=== PATIENT | female | born 2000 | race American Indian/Alaskan Native ===

== ENCOUNTER 2020-08-12 13:10 | Emergency (ER) | payer SELFPAY ==
--- NOTE | 2020-08-12 13:19 | Event Note ---
ED Screening Note ED Screening Note: suprapubic pain and malodorous dc lmp- "late 7 days" nausea g0 home preg pos This initial assessment/diagnostic orders/clinical plan/treatment(s) is/are subject to change based on patients health status, clinical progression and re- assessment by fellow clinical providers in the ED. Further treatment and workup at subsequent clinical providers discretion. Patient/guardian urged not to elope from the ED as their condition may be serious if not clinically assessed and managed. Initial orders include: uti/sti/preg
[2020-08-12 14:15] LABS: Basophils % (Auto) 0.6 % (0.0-1.8); Eosinophils # (Auto) 0.2 K/mm3 (0.0-0.4); Eosinophils % (Auto) 2.7 % (0.0-4.3); Hematocrit 36.7 % (30.3-42.9); Hemoglobin 12.2 gm/dl (10.1-14.3); Lymphocytes # (Auto) 2.1 K/mm3 (1.2-5.4); Lymphocytes % (Auto) 29.9 % (13.4-35.0); Mean Corpuscular HGB Conc 33 % (30-34); Mean Corpuscular Volume 92 fl (79-97); Monocytes # (Auto) 0.5 K/mm3 (0.0-0.8); Monocytes % (Auto) 6.7 % (0.0-7.3); Platelet Count 296 K/mm3 (140-440); Red Blood Count 4.01 M/mm3 (3.65-5.03); Red Cell Distribution Width 13.2 % (13.2-15.2)
[2020-08-12 14:33] LABS: Blood Urea Nitrogen 10 mg/dL (7-17); Hemolysis Index 8
[2020-08-12 14:36] LABS: BUN/Creatinine Ratio 14
[2020-08-12] MEDS ORDERED: ACETAMINOPHEN 325 MG TAB PO ONE (14:57)
--- NOTE | 2020-08-12 14:58 | Emergency Department Report ---
<ROBERT RAY - Last Filed: 08/12/20 16:38> ED Abdominal Pain HPI - General Chief Complaint: Abdominal Pain Stated Complaint: STOMACH CRAMPS/NAUSEA Time Seen by Provider: 08/12/20 13:18 Source: patient Mode of arrival: Ambulatory Limitations: No Limitations - History of Present Illness Initial Comments: 20-year-old female with no significant past medical history presents to the ER today with complaints of lower abdominal cramping. Patient states that she has been having intermittent lower abdominal cramping for the past week. She reports associated nausea and she states that she vomited all day yesterday. She states that her last menstrual cycle was July 03 through July 07. She is currently 7 days late for her menstrual cycle this time around. She states that she did take a home test yesterday and was positive. She also admits to brownish vaginal discharge which she noticed this morning with an odor. She states that this is her first . She denies any UTI symptoms. She denies any new sexual partners. She reports no other symptoms at this time. MD Complaint: abdominal pain -: Gradual, week(s) (1) - Related Data Allergies Allergy/AdvReac Type Severity Reaction Status Date / Time chocolate flavor Allergy Itching Verified 08/12/20 13:17 egg Allergy Unknown Verified 08/12/20 13:17 peanut Allergy Hives Verified 08/12/20 13:17 red dye Allergy Itching Verified 08/12/20 13:17 yellow dye Allergy Itching Verified 08/12/20 13:17 ED Review of Systems Comment: All other systems reviewed and negative Gastrointestinal: abdominal pain, nausea, vomiting Genitourinary: discharge ED Past Medical Hx - Past Medical History Previous Medical History?: Yes Hx Asthma: Yes Additional medical history: ezcema - Surgical History Past Surgical History?: Yes Additional Surgical History: knot removed from Rt breast - Social History Smoking Status: Never Smoker Substance Use Type: Marijuana ED Physical Exam - General Limitations: No Limitations General appearance: alert, in no apparent distress - Respiratory Respiratory exam: Present: normal lung sounds bilaterally. Absent: respiratory distress - Cardiovascular Cardiovascular Exam: Present: regular rate, normal rhythm, normal heart sounds - GI/Abdominal GI/Abdominal exam: Present: soft. Absent: distended, tenderness, guarding, rebound - External exam: Present: normal external exam Speculum exam: Present: normal speculum exam, cervical discharge (white, small ) Bi-manual exam: Present: other (Cervical os is closed). Absent: cervical motion tendernes, adnexal tenderness, adnexal mass - Back Exam Back exam: Present: normal inspection - Neurological Exam Neurological exam: Present: alert, oriented X3, CN II-XII intact, normal gait - Psychiatric Psychiatric exam: Present: normal affect, normal mood - Skin Skin exam: Present: intact ED Medical Decision Making - Lab Data Result diagrams: 08/12/20 13:30 08/12/20 13:30 - Medical Decision Making The patient's care has been transferred to and accepted by[[facility]]. We discussed: The patient's chief complaints; labs and imaging that have been completed and those that are still pending; procedures that have been completed and those remaining to be done; any treatment provided and the patient's response to treatment; any significant change in condition; input from consultants if any; the treatment plan prior to the transfer of care. The accepting provider will follow up on all pending labs and imaging and make any necessary changes to the current impression and/or treatment plan. The accepting physician/midlevel is now responsible for the patient's care and final disposition. ED Disposition Clinical Impression: Abdominal pain in Disposition: - TO HOME OR SELFCARE Condition: Stable Instructions: Abdominal Pain (ED) Additional Instructions: PELVIC REST FOLLOW UP WITH OBGYN IN 48 HOURS THEY WILL REPEAT YOUR LAB WORK LET THEM KNOW YOU WERE SEEN IN ER TYLENOL FOR PAIN REST DIET TOLERATED SAFE SEX Referrals: ELAINE GAMBLE MD [Staff Physician] - 3-5 Days <JANETH SORENSON A - Last Filed: 08/12/20 17:52> ED Review of Systems ROS: Stated complaint: STOMACH CRAMPS/NAUSEA Other details as noted in HPI ED Course Vital Signs 08/12/20 08/12/20 13:17 16:20 Temperature 98.0 F Pulse Rate 88 Respiratory 18 16 Rate Blood Pressure 126/72 O2 Sat by Pulse 100 Oximetry ED Medical Decision Making - Lab Data Result diagrams: 08/12/20 13:30 08/12/20 13:30 - Radiology Data Radiology results: report reviewed, image reviewed see report - Medical Decision Making Lab Results 08/12/20 08/12/20 08/12/20 Range/Units 13:30 13:30 13:30 WBC 6.9 (4.5-11.0) K/mm3 RBC 4.01 (3.65-5.03) M/mm3 Hgb 12.2 (10.1-14.3) gm/dl Hct 36.7 (30.3-42.9) % MCV 92 (79-97) fl MCH 31 (28-32) pg MCHC 33 (30-34) % RDW 13.2 (13.2-15.2) % Plt Count 296 (140-440) K/mm3 Lymph % (Auto) 29.9 (13.4-35.0) % Eddy % (Auto) 6.7 (0.0-7.3) % Eos % (Auto) 2.7 (0.0-4.3) % Baso % (Auto) 0.6 (0.0-1.8) % Lymph # (Auto) 2.1 (1.2-5.4) K/mm3 Eddy # (Auto) 0.5 (0.0-0.8) K/mm3 Eos # (Auto) 0.2 (0.0-0.4) K/mm3 Baso # (Auto) 0.0 (0.0-0.1) K/mm3 Seg Neutrophils % 60.1 (40.0-70.0) % Seg Neutrophils # 4.2 (1.8-7.7) K/mm3 Sodium 135 L (137-145) mmol/L Potassium 3.5 L (3.6-5.0) mmol/L Chloride 101.7 (98-107) mmol/L Carbon Dioxide 21 L (22-30) mmol/L Anion Gap 16 mmol/L BUN 10 (7-17) mg/dL Creatinine 0.7 (0.6-1.2) mg/dL Estimated GFR > 60 ml/min BUN/Creatinine Ratio 14 % Glucose 83 (65-100) mg/dL Calcium 9.0 (8.4-10.2) mg/dL HCG, Quant 34764 H (0-4) mIU/mL Urine Color (Yellow) Urine Turbidity (Clear) Urine pH (5.0-7.0) Ur Specific [place] (1.003-1.030) Urine Protein (Negative) mg/dL Urine Glucose (UA) (Negative) mg/dL Urine Ketones (Negative) mg/dL Urine Blood (Negative) Urine Nitrite (Negative) Urine Bilirubin (Negative) Urine Urobilinogen (<2.0) mg/dL Ur Leukocyte Esterase (Negative) Urine WBC (Auto) (0.0-6.0) /HPF Urine RBC (Auto) (0.0-6.0) /HPF U Epithel Cells (Auto) (0-13.0) /HPF Urine Mucus /HPF Blood Type Ord Rhogam Gestat Weeks WEEKS 08/12/20 08/12/20 Range/Units 15:30 Unknown WBC (4.5-11.0) K/mm3 RBC (3.65-5.03) M/mm3 Hgb (10.1-14.3) gm/dl Hct (30.3-42.9) % MCV (79-97) fl MCH (28-32) pg MCHC (30-34) % RDW (13.2-15.2) % Plt Count (140-440) K/mm3 Lymph % (Auto) (13.4-35.0) % Eddy % (Auto) (0.0-7.3) % Eos % (Auto) (0.0-4.3) % Baso % (Auto) (0.0-1.8) % Lymph # (Auto) (1.2-5.4) K/mm3 Eddy # (Auto) (0.0-0.8) K/mm3 Eos # (Auto) (0.0-0.4) K/mm3 Baso # (Auto) (0.0-0.1) K/mm3 Seg Neutrophils % (40.0-70.0) % Seg Neutrophils # (1.8-7.7) K/mm3 Sodium (137-145) mmol/L Potassium (3.6-5.0) mmol/L Chloride (98-107) mmol/L Carbon Dioxide (22-30) mmol/L Anion Gap mmol/L BUN (7-17) mg/dL Creatinine (0.6-1.2) mg/dL Estimated GFR ml/min BUN/Creatinine Ratio % Glucose (65-100) mg/dL Calcium (8.4-10.2) mg/dL HCG, Quant (0-4) mIU/mL Urine Color [place] (Yellow) Urine Turbidity Cloudy (Clear) Urine pH 6.0 (5.0-7.0) Ur Specific [place] 1.028 (1.003-1.030) Urine Protein 100 mg/dl (Negative) mg/dL Urine Glucose (UA) Neg (Negative) mg/dL Urine Ketones Tr (Negative) mg/dL Urine Blood Neg (Negative) Urine Nitrite Neg (Negative) Urine Bilirubin Neg (Negative) Urine Urobilinogen 2.0 (<2.0) mg/dL Ur Leukocyte Esterase Tr (Negative) Urine WBC (Auto) < 1.0 (0.0-6.0) /HPF Urine RBC (Auto) < 1.0 (0.0-6.0) /HPF U Epithel Cells (Auto) 2.0 (0-13.0) /HPF Urine Mucus Few /HPF Blood Type B POSITIVE Ord Rhogam Gestat Weeks Rh pos WEEKS Vital Signs 08/12/20 08/12/20 13:17 16:20 Temperature 98.0 F Pulse Rate 88 Respiratory 18 16 Rate Blood Pressure 126/72 O2 Sat by Pulse 100 Oximetry ua noted wet prep neg us noted PT NEEDS CALLED IF GC IS POSITIVE- NOT TREATED TODAY Pt being dc home with dc plan of care including obgyn follow up in 48 hours. Pt verbalizes understanding of plan of care. See discharge instructions. - Differential Diagnosis ro preg/ab/ectopic/uti/sti Critical care attestation.: If time is entered above; I have spent that time in minutes in the direct care of this critically ill patient, excluding procedure time. ED Disposition Is pt being admited?: No Does the pt Need Aspirin: No Time of Disposition: 17:51
[2020-08-12 15:45] LABS: Bilirubin,Urine NEG (Negative); Blood,Urine NEG (Negative); Color,Urine Amber (Yellow); Mucus,Urine FEW /HPF; RBC,Urine < 1.0 /HPF (0.0-6.0); WBC,Urine < 1.0 /HPF (0.0-6.0)
--- NOTE | 2020-08-12 17:35 | Ultrasound Report ---
US OB transvaginal, US OB <= 14 weeks fetus INDICATION / CLINICAL INFORMATION: pelvic pain. TECHNIQUE: Transabdominal and Transvaginal. COMPARISON: None available. FINDINGS: UTERUS: Appears within normal limits. GESTATIONAL SAC: Gestational sac is oval in shape measuring 25 mm YOLK SAC: No significant abnormality. EMBRYO/FETUS: - [place]-Rump Length = 0.2 cm = 7 weeks 4 days. - Heart Rate, beats per minute: No heart tones are present. ADNEXA: No significant abnormality. FREE FLUID: None. ADDITIONAL FINDINGS: None. IMPRESSION: 1. Intrauterine with estimated sonographic age of 7 weeks 4 days. heart tones which could just represent early intrauterine . Follow-up beta hCG and sonograms as clinically ind icated. Signer Name: Jose Carty MD Signed: 08/12/2020 5:31 PM Workstation Name: [id number]
--- NOTE | 2020-08-12 17:35 | Ultrasound Report ---
US OB transvaginal, US OB <= 14 weeks fetus INDICATION / CLINICAL INFORMATION: pelvic pain. TECHNIQUE: Transabdominal and Transvaginal. COMPARISON: None available. FINDINGS: UTERUS: Appears within normal limits. GESTATIONAL SAC: Gestational sac is oval in shape measuring 25 mm YOLK SAC: No significant abnormality. EMBRYO/FETUS: - [place]-Rump Length = 0.2 cm = 7 weeks 4 days. - Heart Rate, beats per minute: No heart tones are present. ADNEXA: No significant abnormality. FREE FLUID: None. ADDITIONAL FINDINGS: None. IMPRESSION: 1. Intrauterine with estimated sonographic age of 7 weeks 4 days. heart tones which could just represent early intrauterine . Follow-up beta hCG and sonograms as clinically ind icated. Signer Name: Jose Carty MD Signed: 08/12/2020 5:31 PM Workstation Name: [id number]
[2020-08-12 18:03] VITALS: BP 113/82
== END 2020-08-12 18:03 | disposition home or self-care (01) ==
LOC: ED 13:10
DX: O26.891 Other specified pregnancy related conditions, first trimester (principal); R10.30 Lower abdominal pain, unspecified; J45.909 Unspecified asthma, uncomplicated; F12.10 Cannabis abuse, uncomplicated; Z79.899 Other long term (current) drug therapy; Z3A.01 Less than 8 weeks gestation of pregnancy; Z91.012 Allergy to eggs; Z91.010 Allergy to peanuts; Z88.8 Allergy status to other drugs, medicaments and biological substances
CPT/HCPCS: 36415; 76801; 76817; 80048; 81001; 84702; 85025; 86900; 86901; 87210; 87591